=== PATIENT | male | born 1975 | race Caucasian/White ===

== ENCOUNTER 2022-10-20 14:56 | Emergency (ER) | payer OTHER ==
[2022-10-20] MEDS ORDERED: Lidocaine 1% 10 ML MDV INJECT ONE (17:46)
== END 2022-10-20 19:06 | disposition home or self-care (01) ==
LOC: JD.ED 14:56
DX: S61.412A Laceration without foreign body of left hand, initial encounter (principal); Z88.1 Allergy status to other antibiotic agents; V49.40XA Driver injured in collision with unspecified motor vehicles in traffic accident, initial encounter; Y92.410 Unspecified street and highway as the place of occurrence of the external cause
CPT/HCPCS: 12002; 71046; 71046-26; 99283; J3490